=== PATIENT | male | born 1980 | race Two or more races ===

== ENCOUNTER 2019-12-10 07:21 | Day surgery (SDC) | payer OTHER ==
[~2019-12-10] VITALS: Ht 172.7 cm; Wt 63.5 kg
[2019-12-10] VITALS (12 sets, daily range): BP systolic 128–158; BP diastolic 81–109
[~2019-12-10 07:21] MED LIST: ceFAZolin 1gm IVPB IVPB ONE; celeBREX 200mg Cap **SURGERY PATIENTS ONLY ORAL ONE; oxyCONTIN 20mg tab ORAL ONE
--- NOTE | 2019-12-10 07:28 | Operative Note - PDOC ---
Operative Note Operative Note Pre-op Diagnosis: left knee internal derangement Procedure: see op report Post-op Diagnosis: same as pre-op plus Operative Findings: consistent w/pre-op dx studies Anesthesia: MAC Specimen: none Complications: none Condition: stable Estimated Blood Loss: none Implant(s) used?: No Louis Elizabeth MD Dec 10, 2019 07:28
--- NOTE | 2019-12-10 07:28 | Pre-Procedure Note/Attestation ---
Pre-Procedure Note/Attestation Complete Prior to Procedure Planned Procedure: left Procedure Narrative: shoulder arthroscopy, sad Indications for Procedure Pre-Operative Diagnosis: left knee internal derangement Attestation I attest that I discussed the nature of the procedure; its benefits; risks and complications; and alternatives (and the risks and benefits of such alternatives ), prior to the procedure, with the patient (or the patient's legal contracts representative). I attest that, if there was a reasonable possibility of needing a blood transfusion, the patient (or the patient's legal contracts representative) was given the [facility] standardized written summary, pursuant to the Uriah Ragini Blood Safety Act ([place] Health and Safety Code # 1645, as amended). I attest that I re-evaluated the patient just prior to the surgery and that there has been no change in the patient's H&P, except as documented below: Louis Elizabeth MD Dec 10, 2019 07:28
[2019-12-10] MEDS ORDERED: D5 1/2NS 1,000 ML IV SCH (07:30)
[2019-12-10] MEDS ORDERED: HYDROmorphone 1mg/ml Carpuject SUBQ PRN (07:30)
[2019-12-10] MEDS ORDERED: HYDROcodone/Acetamin 5/325 tab ORAL PRN ×2 (07:30→10:00)
[2019-12-10] MEDS ORDERED: Tylenol #3 tab (300mg/30mg) ORAL PRN (07:30)
[2019-12-10] MEDS ORDERED: celeBREX 200mg Cap **SURGERY PATIENTS ONLY ORAL ONE (08:09)
[2019-12-10] MEDS ORDERED: oxyCONTIN 20mg tab ORAL ONE (08:09)
[2019-12-10] MEDS ORDERED: EPINEPHrine 1mg/1ml Amp ONE ×2 (09:49→09:51)
[2019-12-10] MEDS ORDERED: Ketorolac 30mg Inj ONE (09:49)
[2019-12-10] MEDS ORDERED: Kenalog-40 1ml Vial ONE (09:49)
[2019-12-10] MEDS ORDERED: Duramorph PF 5mg/10ml amp ONE (09:50)
[2019-12-10] MEDS ORDERED: LR 1000ml 1,000 ML IVLG SCH (09:51)
[2019-12-10] MEDS ORDERED: Ropivacaine 5mg/ml Vial 20ml INJ ONE (09:51)
--- NOTE | 2019-12-10 09:52 | Anethesia Preoperative Eval ---
Anesthesia Pre-op PMH/ROS General Date of Evaluation: Dec 10, 2019 Time of Evaluation: 09:47 Anesthesiologist: Mayte ASA Score: ASA 2 Mallampati Score Class I : Soft palate, uvula, fauces, pillars visible Class II: Soft palate, uvula, fauces visible Class III: Soft palate, base of uvula visible Class IV: Only hard plate visible Mallampati Classification: Class I Surgeon: Glenn Diagnosis: L Shoulder Pain Surgical Procedure: L Shoulder Arthroscopy Anesthesia History: none Family History: no anesthesia problems Allergies: Coded Allergies: No Known Allergies (Unverified , 12/08/19) Medications: see eMAR Patient NPO?: Yes Past Medical History Cardiovascular: Reports: HTN Anesthesia Pre-op Phys. Exam Physician Exam Last Vital Signs Date Time Temp Pulse Resp B/P (MAP) Pulse Ox O2 Delivery O2 Flow Rate FiO2 12/10/19 07:53 97.9 70 18 130/84 100 Room Air Constitutional: NAD Neurologic: CN 2-12 intact Cardiovascular: RRR Respiratory: CTA Gastrointestinal: S/NT/ND Airway Exam Mallampati Score: Class I MO: full ROM: full Teeth: missing, intact Anesthesia Pre-op A/P Risk Assessment & Plan Assessment: ASA 2 Plan: GA, SED, L Supraclavicular Block Status Change Before Surgery: No Pre-Antibiotics Dru Grams Ancef IV Given Within 1 Hr of Incision: Yes Time Given: 10:16 Marvin Hu MD Dec 10, 2019 09:52
[2019-12-10] MEDS ORDERED: Lidocaine 1% MPF 10mg/ml 5ml ONE (09:53)
[2019-12-10] MEDS ORDERED: Dexamethasone 4mg/ml vial ONE (09:53)
[2019-12-10] MEDS ORDERED: Propofol 200mg/20ml IV ONE (09:53)
[2019-12-10] MEDS ORDERED: Sodium Chloride 10ml vial INJ ONE (09:53)
[2019-12-10] MEDS ORDERED: Metoclopramide 10mg/2ml Inj IVP PRN (10:00)
[2019-12-10] MEDS ORDERED: LORazepam Inj 2mg/ml 1ml IV PRN (10:00)
[2019-12-10] MEDS ORDERED: fentaNYL 100 mcg/2 mL IV PRN (10:00)
[2019-12-10] MEDS ORDERED: Midazolam 2mg/2ml Inj IVP PRN (10:00)
[2019-12-10] MEDS ORDERED: HYDROcodone/Acetamin 7.5/325 tab ORAL PRN (10:00)
[2019-12-10] MEDS ORDERED: Ketorolac 30mg Inj IV PRN ×2 (10:00)
[2019-12-10] MEDS ORDERED: LR 1000ml ONE (10:00)
[2019-12-10] MEDS ORDERED: DiphenhydrAMINE 50mg/ml Inj IVP PRN (10:00)
[2019-12-10] MEDS ORDERED: Labetalol 5mg/ml 20ml vial IV PRN (10:00)
[2019-12-10] MEDS ORDERED: Sterile Water Irrig 1000ml IRRIG ONE (10:00)
[2019-12-10] MEDS ORDERED: oxyCODONE HCL/Acetaminophen 5/325mg ORAL PRN (10:00)
[2019-12-10] MEDS ORDERED: Atropine Sulfate 0.4mg/ml inj IVP PRN (10:00)
[2019-12-10] MEDS ORDERED: Hydromorphone 0.5mg/0.5ml inj IVP PRN (10:00)
[2019-12-10] MEDS ORDERED: Meperidine 25mg/0.5ml Inj (FOR RIGORS ONLY) IV PRN (10:00)
--- NOTE | 2019-12-10 10:29 | Immediate Post-Op Evaluation ---
Immediate Post-Op Evalulation Immediate Post-Op Evalulation Procedure: L Shoulder Arthroscopy Date of Evaluation: Dec 10, 2019 Time of Evaluation: 11:57 IV Fluids: 1000 LR Blood Products: 0 Estimated Blood Loss: 7 Urinary Output: 0 Blood Pressure Systolic: 156 Blood Pressure Diastolic: 109 Pulse Rate: 83 Respiratory Rate: 16 O2 Sat by Pulse Oximetry: 100 Temperature (Fahrenheit): 98 Pain Score (1-10): 1 Nausea: No Vomiting: No Complications 0 Patient Status: awake, reacts, patent, none Hydration Status: adequate Dru Grams Ancef IV Given Within 1 Hr of Incision: Yes Time Given: 10:16 Marvin Hu MD Dec 10, 2019 10:29
--- NOTE | 2019-12-10 10:30 | 48 Hour Post Anesthesia Eval ---
Post Anesthesia Evaluation Procedure: L Shoulder Arthroscopy Date of Evaluation: Dec 10, 2019 Time of Evaluation: 11:58 Blood Pressure Systolic: 160 0: 98 Pulse Rate: 82 Respiratory Rate: 18 Temperature (Fahrenheit): 98.2 O2 Sat by Pulse Oximetry: 100 Airway: patent Nausea: No Vomiting: No Pain Intensity: 1 Hydration Status: adequate Cardiopulmonary Status: Stable Mental Status/LOC: patient returned to baseline Follow-up Care/Observations: 0 Post-Anesthesia Complications: 0 Follow-up care needed: ready to discharge Marvin Hu MD Dec 10, 2019 10:30
[2019-12-10] MEDS ORDERED: NS Irrig 4000ml IRRIG ONE ×2 (10:37→10:51)
[2019-12-10] MEDS ORDERED: Duramorph PF 5mg/10ml amp IT ONE (11:15)
--- NOTE | 2019-12-10 17:00 | Operative Note - Dictated ---
DATE OF OPERATION: 12/10/2019 PREOPERATIVE DIAGNOSIS: Left shoulder posterior and superior labral tear. POSTOPERATIVE DIAGNOSES: 1. Left shoulder posterior and superior labral tear. 2. Grade 1 chondral damage going through humeral surface. 3. Partial articular-sided rotator cuff tear. PROCEDURES: 1. Left shoulder diagnostic arthroscopy and extensive intraarticular debridement. 2. Left shoulder debridement/repair, partial articular sided rotator cuff tear along the supraspinous tendon. 3. Posterior labral stabilization. 4. Subacromial Bursocopy . SURGEON: Louis Elizabeth M.D. ANESTHESIA: Interscalene with general. INDICATION FOR PROCEDURE: The patient is a pleasant gentleman who has had progressive left shoulder pain. He had MRI, which showed substantial labral tear. He elected to undergo left shoulder labral stabilization. Risks, limitations, expectations, and complications of procedure were discussed in detail. All questions addressed. DESCRIPTION OF PROCEDURE: After informed consent was obtained, the patient was brought to the operating room. The patient was placed under interscalene general anesthesia. The patient was then carefully placed in the beach chair position. Left shoulder was prepped and draped in a sterile manner. Time-out was performed. Inferolateral stab incision was then made. Trocar was introduced into the glenohumeral joint. There was some grade 1 chondral damage inthe glenoid. There was intrasubstance tear of the inferior aspect of the anterior labrum. Medial portal was established and debridement of this tissue was performed. The anterior labrum was probed, noted to be intact. There was undersurface rotator cuff tear. Partial debridement of the articular sided rotator cuff tear was performed. Once this was done, the camera was placed in the anterior medial working portal. The posterior labrum and superior labrum was evaluated. There was significant tearing. Two arthroscopic anchor was then placed along the posterior and superior aspect of the labrum securing the posterior labrum back down to the glenoid. It was probed and noted to be stable. The camera was then repositioned through the posterior portal again and the repair was assessed from the anterior portal. Once adequate fixation was confirmed, camera was placed in the subacromial space. Bursoscopy showed no bursal sided articular pathology. Instruments were removed. Portal sites were closed with 3-0 Monocryl sutures. Steri-Strips and a sterile dressing were applied. ESTIMATED BLOOD LOSS: None. COMPLICATIONS: None. SPECIMENS: None. IMPLANTS: Include 2 Biomet Robin anchors. Louis Elizabeth M.D. DR: Constantine JOB#: [id number] CC: ALEX
== END 2019-12-10 13:35 | disposition home or self-care (01) ==
LOC: SUR 07:21
DX: S43.402A Unspecified sprain of left shoulder joint, initial encounter (principal); M75.112 Incomplete rotator cuff tear or rupture of left shoulder, not specified as traumatic; I10 Essential (primary) hypertension; X58.XXXA Exposure to other specified factors, initial encounter; Y92.9 Unspecified place or not applicable
CPT/HCPCS: 29807; 29823; J0171; J0690; J1100; J1885; J2250; J2405; J2704; J2795; J3301; J7120; 94003; 94150; C1713